=== PATIENT | female | born 1950 | race Caucasian/White ===

== ENCOUNTER 2021-01-20 11:35 | Inpatient (IN) | payer MEDICARE, OTHER ==
[~2021-01-20] VITALS: Ht 149.9 cm; Wt 87.0 kg
[2021-01-20] MEDS ORDERED: SODIUM CHLORIDE FLUSH 10ML SYR IVF ONE (12:00)
[2021-01-20 12:32] LABS: BASOPHILS % (AUTO) 0 % (0-1); EOSINOPHILS % (AUTO) 0 % (1-7); LYMPHOCYTES % (AUTO) 7 % (22-44); MEAN CORPUSCULAR HEMOGLOBIN 29.1 pg (27.0-34.8); MEAN CORPUSCULAR HGB CONC 34.1 g/dL (32.4-35.8); MONOCYTES % (AUTO) 10 % (2-9); NEUTROPHILS % (AUTO) 83 % (42-75); PLATELET COUNT 376 x10^3/uL (130-400); RED BLOOD COUNT 5.73 x10^6/uL (3.82-5.3); RED CELL DISTRIBUTION WIDTH 13.9 % (9.6-15.2)
[2021-01-20 12:42] LABS: ALANINE AMINOTRANSFERASE 29 U/L (12-78); ALBUMIN 2.9 g/dL (3.4-5.0); ANION GAP 12 mmol/L (5-15); CALCIUM 9.6 mg/dL (8.5-10.1); CHLORIDE 96 mmol/L (98-107); CREATININE 1.01 mg/dL (0.55-1.02)
[2021-01-20 12:47] LABS: ALKALINE PHOSPHATASE 87 U/L (45-117); BILIRUBIN,TOTAL 0.6 mg/dL (0.2-1.0); TOTAL PROTEIN 7.8 g/dL (6.4-8.2); TROPONIN I < 0.015 ng/mL (0.000-0.045)
--- NOTE | 2021-01-20 13:02 | NUR ---
TO ROOM FROM LOBBY VIA WHEELCHAIR.
--- NOTE | 2021-01-20 13:13 | NUR ---
in room to see pt
--- NOTE | 2021-01-20 13:13 | NUR ---
PT BIB POV, 70Y/O FEMALE. DX COVID + AT HOME. PER O2 SATS WERE HIGH 80'S TO 90'S, TODAY DECREASED TO 70'S. pT PLACED ON MONITOR O2 AND CONT PULSE OX. AT BEDSIDE. iv STARTED AND FLUIDS INFUSING.
[2021-01-20] MEDS ORDERED: INSULIN REGULAR 100 UNITS/ML, 3ML VIAL SQ-INSULIN ONE (13:30)
[2021-01-20] MEDS ORDERED: SODIUM CHLORIDE 0.9% 1,000 ML IV ONE (13:30)
[2021-01-20] MEDS ORDERED: INSULIN SINGLE DOSE, ER ONE (13:31)
--- NOTE | 2021-01-20 14:18 | NUR ---
REPORT TO JANIE. PT TO ROOM 372 VIA [facility]
[2021-01-20] MEDS ORDERED: INSULIN GLARGINE 100 UNITS/ML, PEN SQ-INSULIN SCH (15:30)
[2021-01-20] MEDS ORDERED: morphine SULFATE 10 MG/ML, 1ML IVPush PRN (15:30)
[2021-01-20] MEDS ORDERED: PHARMACY MAY ADJ FOR RENAL FX MC PRN (15:30)
[2021-01-20] MEDS ORDERED: REMDESIVIR 200 MG in SODIUM CHLORIDE 0.9% 100 ML IVPB ONE (15:30)
[2021-01-20] MEDS ORDERED: ONDANSETRON ODT 4 MG PO PRN (15:30)
[2021-01-20] MEDS ORDERED: IBUPROFEN 600 MG TABLET PO PRN (15:30)
[2021-01-20] MEDS ORDERED: ACETAMINOPHEN 325 MG TABLET PO PRN (15:30)
[2021-01-20] MEDS ORDERED: POLYETHYLENE GLYCOL 17 GM PACKET PO PRN (15:30)
[2021-01-20] MEDS ORDERED: LISINOPRIL 20 MG TABLET PO ONE (15:30)
[2021-01-20] MEDS ORDERED: LIDODERM 5% PATCH TD PRN (15:30)
[2021-01-20] MEDS ORDERED: LABETALOL 5MG/ML, 20ML IVPush PRN (15:30)
[2021-01-20] MEDS: INSULIN LISPRO 100 UNITS/ML, PEN SQ-INSULIN SCH ×2 (16:00→20:53)
[2021-01-20 16:12] VITALS: BP 160/90
[2021-01-20 16:21] LABS: ANION GAP 9 mmol/L (5-15); CALCIUM 8.8 mg/dL (8.5-10.1); CHLORIDE 102 mmol/L (98-107); CREATININE 0.92 mg/dL (0.55-1.02)
[2021-01-20] MEDS: DEXAMETHASONE 4 MG/ML, 1ML IVPush SCH (17:37)
[2021-01-20] MEDS: CEFTRIAXONE 1,000 MG in DEXTROSE 5% 50 ML IVPB SCH (17:37)
[2021-01-20] MEDS: AZITHROMYCIN 250 MG TABLET PO SCH (17:37)
[2021-01-20] MEDS: ENOXAPARIN 40 MG/0.4 ML SQ SCH (17:38)
[2021-01-20] MEDS: SODIUM CHLORIDE 0.9% 500 ML IV SCH (18:37)
[2021-01-20 19:21] VITALS: BP 171/87
[2021-01-20] MEDS: ASCORBIC ACID 500 MG TABLET PO SCH (20:04)
[2021-01-20 20:06] VITALS: BP 175/101
[2021-01-20] MEDS ORDERED: INSULIN LISPRO 100 UNITS/ML, PEN SQ-INSULIN ONE (21:00)
[2021-01-20 22:09] VITALS: BP 148/73
[2021-01-20] MEDS ORDERED: LISI20TA21 PO (22:23)
[2021-01-20] MEDS ORDERED: IVER3TAB2 PO (22:23)
[2021-01-20] MEDS ORDERED: METF500T17 PO (22:23)
[2021-01-20] MEDS ORDERED: ASPI81TA45 PO (22:23)
[2021-01-20] MEDS ORDERED: HYDR200T5 PO (22:23)
[2021-01-20] MEDS ORDERED: AZIT250T89 PO (22:23)
[2021-01-20] MEDS ORDERED: CHOL10003 PO (22:23)
[2021-01-20] MEDS ORDERED: ATOR20TA86 PO (22:23)
[2021-01-21] MEDS: SODIUM CHLORIDE 0.9% 500 ML IV SCH ×2 (00:17→04:08)
[2021-01-21 01:28] VITALS: BP 157/90
[2021-01-21 02:31] LABS: BASOPHILS % (AUTO) 0 % (0-1); EOSINOPHILS % (AUTO) 0 % (1-7); HCT (SEDRATE) 44.7 % (34.6-47.8); LYMPHOCYTES % (AUTO) 8 % (22-44); MEAN CORPUSCULAR HGB CONC 34.4 g/dL (32.4-35.8); MEAN PLATELET VOLUME 7.7 fL (7.4-10.4); MONOCYTES % (AUTO) 10 % (2-9); NEUTROPHILS % (AUTO) 82 % (42-75); PLATELET COUNT 365 x10^3/uL (130-400); RED BLOOD COUNT 5.34 x10^6/uL (3.82-5.3); RED CELL DISTRIBUTION WIDTH 13.5 % (9.6-15.2)
[2021-01-21 02:42] LABS: ANION GAP 10 mmol/L (5-15); CALCIUM 8.7 mg/dL (8.5-10.1); CHLORIDE 105 mmol/L (98-107); CREATININE 0.73 mg/dL (0.55-1.02)
[2021-01-21 07:11] VITALS: BP 176/93
[2021-01-21] MEDS: INSULIN LISPRO 100 UNITS/ML, PEN SQ-INSULIN SCH ×4 (08:38→21:10)
[2021-01-21] MEDS: AZITHROMYCIN 250 MG TABLET PO SCH (08:39)
[2021-01-21] MEDS: ZINC SULFATE 220 MG CAPSULE PO SCH (08:39)
[2021-01-21] MEDS: ASCORBIC ACID 500 MG TABLET PO SCH ×2 (08:39→21:10)
[2021-01-21] MEDS: DEXAMETHASONE 4 MG/ML, 1ML IVPush SCH (08:39)
[2021-01-21] MEDS: SENNA/DOCUSATE TABLET PO SCH (08:39)
[2021-01-21 12:42] VITALS: BP 162/90
[2021-01-21] MEDS: ENOXAPARIN 40 MG/0.4 ML SQ SCH (15:53)
[2021-01-21] MEDS: CEFTRIAXONE 1,000 MG in DEXTROSE 5% 50 ML IVPB SCH (15:54)
[2021-01-21] MEDS: REMDESIVIR 100 MG in SODIUM CHLORIDE 0.9% 100 ML IVPB SCH (15:54)
[2021-01-21 16:03] VITALS: BP 160/88
[2021-01-21 19:54] VITALS: BP 152/90
[2021-01-21] MEDS ORDERED: INSULIN GLARGINE 100 UNITS/ML, PEN SQ-INSULIN SCH (21:00)
[2021-01-22 00:07] VITALS: BP 152/82
[2021-01-22 06:58] LABS: ANION GAP 13 mmol/L (5-15); CALCIUM 8.8 mg/dL (8.5-10.1); CHLORIDE 100 mmol/L (98-107)
[2021-01-22 06:59] LABS: CREATININE 0.61 mg/dL (0.55-1.02)
[2021-01-22 08:00] VITALS: BP 143/87
[2021-01-22] MEDS: DEXAMETHASONE 4 MG/ML, 1ML IVPush SCH (08:53)
[2021-01-22] MEDS: INSULIN LISPRO 100 UNITS/ML, PEN SQ-INSULIN SCH ×4 (08:53→20:28)
[2021-01-22] MEDS: ZINC SULFATE 220 MG CAPSULE PO SCH (08:54)
[2021-01-22] MEDS: ASCORBIC ACID 500 MG TABLET PO SCH ×2 (08:54→20:27)
[2021-01-22] MEDS: AZITHROMYCIN 250 MG TABLET PO SCH (08:55)
[2021-01-22] MEDS: SENNA/DOCUSATE TABLET PO SCH (08:56)
[2021-01-22 08:57] LABS: ALANINE AMINOTRANSFERASE 37 U/L (12-78); ALBUMIN 2.1 g/dL (3.4-5.0)
[2021-01-22 08:58] LABS: ALKALINE PHOSPHATASE 86 U/L (45-117); BILIRUBIN,TOTAL 0.8 mg/dL (0.2-1.0)
[2021-01-22] MEDS ORDERED: POTASSIUM CHLORIDE 20 MEQ TAB.ER.PRT PO ONE (10:00)
[2021-01-22 14:00] VITALS: BP 136/72
[2021-01-22] MEDS: INSULIN LISPRO 100 UNIT/ML, 3ML VIAL SQ-INSULIN SCH (16:00)
[2021-01-22] MEDS: ENOXAPARIN 40 MG/0.4 ML SQ SCH (16:37)
[2021-01-22] MEDS: CEFTRIAXONE 1,000 MG in DEXTROSE 5% 50 ML IVPB SCH (16:37)
[2021-01-22] MEDS: REMDESIVIR 100 MG in SODIUM CHLORIDE 0.9% 100 ML IVPB SCH (17:52)
[2021-01-22 18:39] VITALS: BP 152/84
[2021-01-22] MEDS: INSULIN GLARGINE 100 UNITS/ML, PEN SQ-INSULIN SCH (20:28)
[2021-01-22] MEDS ORDERED: INSULIN LISPRO 100 UNIT/ML, 3ML VIAL SQ-INSULIN ONE (22:00)
[2021-01-22 23:14] LABS: ANION GAP 12 mmol/L (5-15); CALCIUM 8.3 mg/dL (8.5-10.1); CHLORIDE 98 mmol/L (98-107)
[2021-01-23 00:04] VITALS: BP 154/97
[2021-01-23] MEDS: INSULIN LISPRO 100 UNIT/ML, 3ML VIAL SQ-INSULIN SCH ×2 (07:00→11:00)
[2021-01-23] MEDS ORDERED: POTASSIUM CHLORIDE 20 MEQ TAB.ER.PRT PO ONE (07:00)
[2021-01-23 07:24] LABS: CHLORIDE 101 mmol/L (98-107)
[2021-01-23 07:32] LABS: ALANINE AMINOTRANSFERASE 23 U/L (12-78); ALBUMIN 2.4 g/dL (3.4-5.0); ALKALINE PHOSPHATASE 72 U/L (45-117); ANION GAP 11 mmol/L (5-15); BILIRUBIN,TOTAL 0.6 mg/dL (0.2-1.0); CALCIUM 8.8 mg/dL (8.5-10.1); CREATININE 0.48 mg/dL (0.55-1.02); TOTAL PROTEIN 6.7 g/dL (6.4-8.2)
[2021-01-23 08:03] VITALS: BP 153/88
[2021-01-23] MEDS: INSULIN LISPRO 100 UNITS/ML, PEN SQ-INSULIN SCH ×6 (08:32→21:50)
[2021-01-23] MEDS: AZITHROMYCIN 250 MG TABLET PO SCH (08:36)
[2021-01-23] MEDS: SENNA/DOCUSATE TABLET PO SCH (08:36)
[2021-01-23] MEDS: ASCORBIC ACID 500 MG TABLET PO SCH ×2 (08:36→21:48)
[2021-01-23] MEDS: ZINC SULFATE 220 MG CAPSULE PO SCH (08:36)
[2021-01-23] MEDS: DEXAMETHASONE 4 MG/ML, 1ML IVPush SCH (11:48)
[2021-01-23 12:45] VITALS: BP 138/76
[2021-01-23] MEDS ORDERED: INSULIN LISPRO 100 UNIT/ML, 3ML VIAL SQ-INSULIN SCH (15:30)
[2021-01-23] MEDS: FUROSEMIDE 20 MG/2 ML IV SCH (16:09)
[2021-01-23] MEDS: POTASSIUM CHLORIDE 20 MEQ TAB.ER.PRT PO SCH (16:10)
[2021-01-23] MEDS: REMDESIVIR 100 MG in SODIUM CHLORIDE 0.9% 100 ML IVPB SCH (16:10)
[2021-01-23] MEDS: CEFTRIAXONE 1,000 MG in DEXTROSE 5% 50 ML IVPB SCH (16:11)
[2021-01-23] MEDS: ENOXAPARIN 40 MG/0.4 ML SQ SCH (16:11)
[2021-01-23 20:33] VITALS: BP 152/78
[2021-01-23] MEDS: INSULIN GLARGINE 100 UNITS/ML, PEN SQ-INSULIN SCH (21:50)
[2021-01-24 01:25] VITALS: BP 154/88
[2021-01-24] MEDS: INSULIN LISPRO 100 UNITS/ML, PEN SQ-INSULIN SCH ×3 (06:03→11:56)
[2021-01-24 07:21] LABS: ALANINE AMINOTRANSFERASE 25 U/L (12-78); ALBUMIN 2.5 g/dL (3.4-5.0); ANION GAP 11 mmol/L (5-15); CHLORIDE 102 mmol/L (98-107)
[2021-01-24 07:24] LABS: ALKALINE PHOSPHATASE 77 U/L (45-117); BILIRUBIN,TOTAL 0.6 mg/dL (0.2-1.0); CREATININE 0.65 mg/dL (0.55-1.02); TOTAL PROTEIN 7.3 g/dL (6.4-8.2)
[2021-01-24] MEDS ORDERED: INSULIN LISPRO 100 UNITS/ML, PEN SQ-INSULIN SCH ×3 (07:30→16:30)
[2021-01-24 07:58] VITALS: BP 147/73
[2021-01-24] MEDS: DEXAMETHASONE 4 MG/ML, 1ML IVPush SCH (08:31)
[2021-01-24] MEDS: FUROSEMIDE 20 MG/2 ML IV SCH (08:34)
[2021-01-24] MEDS: POTASSIUM CHLORIDE 20 MEQ TAB.ER.PRT PO SCH (08:39)
[2021-01-24] MEDS: ZINC SULFATE 220 MG CAPSULE PO SCH (08:40)
[2021-01-24] MEDS: ASCORBIC ACID 500 MG TABLET PO SCH (08:40)
[2021-01-24] MEDS: SENNA/DOCUSATE TABLET PO SCH (08:40)
[2021-01-24] MEDS: AZITHROMYCIN 250 MG TABLET PO SCH (08:40)
[2021-01-24 12:19] VITALS: BP 125/84
[2021-01-24] MEDS: CEFTRIAXONE 1,000 MG in DEXTROSE 5% 50 ML IVPB SCH (15:40)
[2021-01-24] MEDS: REMDESIVIR 100 MG in SODIUM CHLORIDE 0.9% 100 ML IVPB SCH (16:15)
[2021-01-24] MEDS: ENOXAPARIN 40 MG/0.4 ML SQ SCH (16:20)
== END 2021-01-24 17:02 | disposition home or self-care (01) | DRG 871 ==
LOC: ED 13:46 → EDIP 14:05 → 3N 15:24
PROVIDERS: ADMIT Hospitalist; ATTEND Hospitalist
PROC: XW033E5 Introduction of Remdesivir Anti-infective into Peripheral Vein, Percutaneous Approach, New Technology Group 5 (ICD-10-PCS; principal; 2021-01-19)
DX: A41.89 Other specified sepsis (principal); U07.1 COVID-19; J12.82 Pneumonia due to coronavirus disease 2019; J96.01 Acute respiratory failure with hypoxia; E87.2 Acidosis; R65.20 Severe sepsis without septic shock; E11.65 Type 2 diabetes mellitus with hyperglycemia; E78.5 Hyperlipidemia, unspecified; E86.0 Dehydration; E87.6 Hypokalemia; I10 Essential (primary) hypertension; Z79.84 Long term (current) use of oral hypoglycemic drugs; Z79.899 Other long term (current) drug therapy; Z88.0 Allergy status to penicillin
CPT/HCPCS: 36415; 71045; 80048; 80053; 82728; 82947; 82962; 83036; 83605; 83735; 84100; 84145; 84484; 85025; 85379; 85651; 86140; 87040; 93005; 96374; G0378; J0696; J1100; J1650; J1815; J1817; J1940; J7030; J7040